=== PATIENT | female | born 1955 | race Caucasian/White ===

== ENCOUNTER 2018-09-22 13:16 | Outpatient (CLI) | payer BC ==
--- NOTE | 2018-09-22 14:12 | MMO ---
Bilateral MAMMO Bilat Screen [facility]DI. CLINICAL HISTORY: Patient is 62 years old and is seen for screening. The patient has the following family history of breast cancer: mother. The patient has no personal history of cancer. VIEWS: The views performed were: bilateral craniocaudal and bilateral mediolateral oblique. FILMS COMPARED: The present examination has been compared to prior imaging studies performed at [facility] on 09/01/2014, and at [facility] on 03/02/2008. This study has been interpreted with the assistance of computer-aided detection. MAMMOGRAM FINDINGS: There are scattered fibroglandular densities. There are no suspicious masses, suspicious calcifications, or new areas of architectural distortion. IMPRESSION: THERE IS NO MAMMOGRAPHIC EVIDENCE OF MALIGNANCY. A ROUTINE FOLLOW-UP MAMMOGRAM IN 1 YEAR IS RECOMMENDED. ACR BI-RADS Category 1 - Negative MAMMOGRAPHY NOTE: 1. A negative mammogram report should not delay a biopsy if a dominant of clinically suspicious mass is present. 2. Approximately 10% to 15% of breast cancers are not detected by mammography. 3. Adenosis and dense breasts may obscure an underlying neoplasm. Reported by: AMNA MURDOCK MD Electonically Signed: [id number]
== END 2018-09-22 13:17 | disposition home or self-care (01) ==
LOC: SCSMAMMO 13:16
PROVIDERS: ATTEND Family Medicine
DX: Z12.31 Encounter for screening mammogram for malignant neoplasm of breast (principal); Z80.3 Family history of malignant neoplasm of breast
CPT/HCPCS: 77067

== ENCOUNTER 2023-01-22 16:03 | Outpatient (CLI) | payer BC | END 2023-01-22 16:04 | disposition home or self-care (01) | LOC: BICRAD 16:03 | PROVIDERS: ATTEND Family Medicine | DX: L03.011 Cellulitis of right finger (principal) ==

== ENCOUNTER 2023-11-20 18:22 | Inpatient (IN) | payer MEDICARE ==
[2023-11-20] MEDS ORDERED: dilTIAZem 25 MG/5 ML VIAL ONE ×2 (18:39→19:50)
[2023-11-20] MEDS ORDERED: Diltiazem HCl/D5W 125 ML ONE (18:50)
[2023-11-20 19:29] LABS: #Basophils 0.03 10x3/uL (0.0-0.2); %Basophils 0.5 % (0.0-1.0); %Eosinophils 1.2 % (0.0-10.0); %Lymphocytes 15.9 % (21.0-51.0); %Monocytes 9.8 % (0.0-10.0); %Neutrophils 72.1 % (42.0-75.0); Hematocrit 42.8 % (36.0-47.0); Hemoglobin 13.3 g/dL (12.0-16.0); Mean Corpuscular HGB CONC 31.1 g/dL (32.0-36.0); Mean Corpuscular Hemoglobin 29.2 pg (27.0-31.0); Mean Corpuscular Volume 94.1 fL (78.0-98.0); Platelet Count 195 10x3/uL (130-400); RBC Distribution Width 14.1 % (11.5-14.5); Red Blood Cell (RBC) Count 4.55 mill/uL (4.20-5.40)
[2023-11-20] MEDS ORDERED: Amiodarone 150 MG/3 ML VIAL ONE (19:50)
[2023-11-20 19:55] LABS: ALT (SGPT) 30 U/L (8-55); AST (SGOT) 19 U/L (5-34); Albumin 3.3 g/dL (3.4-4.8); Alkaline Phosphatase 74 U/L (40-110); Anion Gap 18 mmol/L (10-20); BUN (Urea Nitrogen) 11 mg/dL (9.8-20.1); Bilirubin, Total 1.4 mg/dL (0.2-1.2); Calc. Creatinine Clearance 0 mL/min (70-130); Carbon Dioxide 21 mmol/L (23-31); Chloride 104 mmol/L (98-107); Estimated GFR 95; Glucose 149 mg/dL (80-115); Protein, Total 6.3 g/dL (5.8-8.1); Sodium 139 mmol/L (136-145)
[2023-11-20 20:01] LABS: Troponin I Less than 0.010 ng/mL (< 0.028)
[2023-11-20] MEDS ORDERED: Amiodarone 450 MG, Admixture Fee 1 EACH in Dextrose 5% in Water 250 ML IVPB SCH (20:15)
[2023-11-20] MEDS ORDERED: Sodium Chloride 0.9% 100 ML ONE (20:19)
[2023-11-20] MEDS ORDERED: cefTRIAXone (ROCEPHIN) 2 GM VIAL ONE (20:19)
[2023-11-20 20:53] LABS: Influenza A by NAA Not Detected (NotDetected); Influenza B by NAA Not Detected (NotDetected); SARS-CoV-2 NAA Rapid Test Not Detected (NotDetected)
[2023-11-20] MEDS ORDERED: Metoprolol Tartrate 5 MG (5 mL) VIAL ONE (22:55)
[2023-11-20] MEDS ORDERED: Ondansetron PF 4 MG/2 ML Vial IVP PRN (23:09)
[2023-11-20] MEDS ORDERED: Acetaminophen 325 MG TAB PO PRN (23:09)
[2023-11-20] MEDS ORDERED: Dextrose 5% in Water 1,000 ML IV PRN (23:21)
[2023-11-20] MEDS ORDERED: Glucagon 1 MG/ML KIT IM PRN (23:21)
[2023-11-20] MEDS ORDERED: Dextrose 50% Abboject 50 ML SYRINGE SLOW IVP PRN (23:21)
[2023-11-21] MEDS: Furosemide 20 MG (2 mL) VIAL SLOW IVP SCH ×2 (00:05→06:41)
[2023-11-21] MEDS ORDERED: Benzonatate 100 MG CAP ONE (00:07)
[2023-11-21] MEDS: Benzonatate 100 MG CAP PO PRN (00:09)
[2023-11-21] MEDS: Amiodarone 150 MG, Admixture Fee 1 EACH in Dextrose 5% in Water 100 ML IVPB SCH (00:48)
[2023-11-21] MEDS ORDERED: Diltiazem HCl/D5W 125 ML ONE (03:34)
[2023-11-21] MEDS: dilTIAZem 125 MG in Sodium Chloride 0.9% 100 ML IVPB SCH (03:54)
[2023-11-21 04:10] LABS: #Basophils 0.04 10x3/uL (0.0-0.2); %Basophils 0.6 % (0.0-1.0); %Eosinophils 1.1 % (0.0-10.0); %Lymphocytes 16.8 % (21.0-51.0); %Monocytes 11.5 % (0.0-10.0); %Neutrophils 69.7 % (42.0-75.0); Hematocrit 44.3 % (36.0-47.0); Hemoglobin 14.2 g/dL (12.0-16.0); Mean Corpuscular HGB CONC 32.1 g/dL (32.0-36.0); Mean Corpuscular Hemoglobin 29.6 pg (27.0-31.0); Mean Corpuscular Volume 92.5 fL (78.0-98.0); Mean Platelet Volume 10.3 fL (7.4-10.4); Platelet Count 194 10x3/uL (130-400); RBC Distribution Width 14.1 % (11.5-14.5); Red Blood Cell (RBC) Count 4.79 mill/uL (4.20-5.40)
[2023-11-21 04:32] LABS: Anion Gap 18 mmol/L (10-20); BUN (Urea Nitrogen) 16 mg/dL (9.8-20.1); Calc. Creatinine Clearance 109 mL/min (70-130); Carbon Dioxide 20 mmol/L (23-31); Chloride 101 mmol/L (98-107); Estimated GFR 87; Glucose 256 mg/dL (80-115); Potassium 4.1 mmol/L (3.5-5.1); Sodium 135 mmol/L (136-145)
[2023-11-21] MEDS ORDERED: Furosemide 20 MG (2 mL) VIAL ONE ×2 (06:32)
[2023-11-21] MEDS ORDERED: HumaLOG 300 UNITS/3 ML VIAL ONE (06:32)
[2023-11-21 06:48] VITALS: BP 125/66
[2023-11-21] MEDS: guaiFENesin/DM ER PO SCH (11:16)
[2023-11-21] MEDS: Atorvastatin Calcium 10 MG TAB PO SCH ×2 (11:16→21:25)
[2023-11-21] MEDS: Apixaban 5 MG TAB PO SCH (11:16)
[2023-11-21 15:31] VITALS: BMI 35.4
[2023-11-21] MEDS: Insulin Lispro 100 UNIT/ML 10 ML VIAL SC PRN ×2 (17:25→21:26)
[2023-11-21] MEDS: Diltiazem HCl/D5W 125 MG in Premix 1 BAG IVPB SCH (20:24)
[2023-11-21] MEDS: Insulin Glargine 30 UNITS/0.3 ML VIAL SC SCH (21:26)
[2023-11-22] MEDS: Amiodarone 450 MG in Dextrose 5% in Water 250 ML IVPB SCH (01:24)
[2023-11-22 05:28] LABS: #Basophils 0.03 10x3/uL (0.0-0.2); %Basophils 0.6 % (0.0-1.0); %Eosinophils 3.2 % (0.0-10.0); %Lymphocytes 29.5 % (21.0-51.0); %Monocytes 12.7 % (0.0-10.0); %Neutrophils 53.6 % (42.0-75.0); Hemoglobin 13.2 g/dL (12.0-16.0); Mean Corpuscular HGB CONC 31.4 g/dL (32.0-36.0); Mean Corpuscular Hemoglobin 29.6 pg (27.0-31.0); Mean Corpuscular Volume 94.2 fL (78.0-98.0); Mean Platelet Volume 10.3 fL (7.4-10.4); Platelet Count 204 10x3/uL (130-400); RBC Distribution Width 13.9 % (11.5-14.5); Red Blood Cell (RBC) Count 4.46 mill/uL (4.20-5.40)
[2023-11-22 05:43] LABS: Anion Gap 16 mmol/L (10-20); BUN (Urea Nitrogen) 20 mg/dL (9.8-20.1); Calc. Creatinine Clearance 124 mL/min (70-130); Calcium 8.8 mg/dL (7.8-10.44); Carbon Dioxide 25 mmol/L (23-31); Chloride 100 mmol/L (98-107); Estimated GFR 96; Glucose 189 mg/dL (80-115); Potassium 3.7 mmol/L (3.5-5.1); Sodium 137 mmol/L (136-145)
[2023-11-22] MEDS ORDERED: PROPOFOL 200 MG/20 ML VIAL ONE (12:16)
[2023-11-22] MEDS ORDERED: Lidocaine 1% PF 5 ML VIAL ONE (12:16)
[2023-11-22] MEDS: Sodium Chloride 0.9% 1,000 ML IV SCH (17:19)
[2023-11-23 04:41] LABS: #Basophils 0.04 10x3/uL (0.0-0.2); %Basophils 0.7 % (0.0-1.0); %Eosinophils 3.7 % (0.0-10.0); %Lymphocytes 35.8 % (21.0-51.0); %Monocytes 8.1 % (0.0-10.0); %Neutrophils 51.3 % (42.0-75.0); Hematocrit 44.3 % (36.0-47.0); Hemoglobin 14.1 g/dL (12.0-16.0); Mean Corpuscular HGB CONC 31.8 g/dL (32.0-36.0); Mean Corpuscular Hemoglobin 29.8 pg (27.0-31.0); Mean Corpuscular Volume 93.7 fL (78.0-98.0); Mean Platelet Volume 10.2 fL (7.4-10.4); Platelet Count 258 10x3/uL (130-400); RBC Distribution Width 13.6 % (11.5-14.5); Red Blood Cell (RBC) Count 4.73 mill/uL (4.20-5.40)
[2023-11-23 05:53] LABS: ALT (SGPT) 30 U/L (8-55); AST (SGOT) 20 U/L (5-34); Albumin 3.5 g/dL (3.4-4.8); Alkaline Phosphatase 83 U/L (40-110); Anion Gap 17 mmol/L (10-20); BUN (Urea Nitrogen) 25 mg/dL (9.8-20.1); Bilirubin, Total 1.4 mg/dL (0.2-1.2); Calc. Creatinine Clearance 115 mL/min (70-130); Calcium 9.3 mg/dL (7.8-10.44); Carbon Dioxide 30 mmol/L (23-31); Chloride 98 mmol/L (98-107); Estimated GFR 95; Globulin 3.4 g/dL (2.4-3.5); Glucose 143 mg/dL (80-115); Magnesium 2.4 mg/dL (1.6-2.6); Potassium 3.7 mmol/L (3.5-5.1); Protein, Total 6.9 g/dL (5.8-8.1); Sodium 141 mmol/L (136-145)
[2023-11-23 08:05] VITALS: TEMP 97.6
== END 2023-11-23 13:00 | disposition home or self-care (01) | DRG 308 ==
LOC: ERS 18:22 → ERHOLD 23:11 → IMCU/EMU 11-21 08:54
PROVIDERS: ADMIT Internal Medicine; ATTEND Internal Medicine
PROC: 5A2204Z Restoration of Cardiac Rhythm, Single (ICD-10-PCS; principal; 2023-11-22)
DX: I48.92 Unspecified atrial flutter (principal); I50.33 Acute on chronic diastolic (congestive) heart failure; E11.9 Type 2 diabetes mellitus without complications; I11.0 Hypertensive heart disease with heart failure; E78.5 Hyperlipidemia, unspecified; J06.9 Acute upper respiratory infection, unspecified; I48.0 Paroxysmal atrial fibrillation; E66.9 Obesity, unspecified; Z88.5 Allergy status to narcotic agent; Z91.018 Allergy to other foods; Z79.82 Long term (current) use of aspirin; Z79.899 Other long term (current) drug therapy; Z79.01 Long term (current) use of anticoagulants; Z88.2 Allergy status to sulfonamides; Z79.84 Long term (current) use of oral hypoglycemic drugs; Z79.4 Long term (current) use of insulin; Z68.34 Body mass index [BMI] 34.0-34.9, adult
CPT/HCPCS: 36415; 36416; 71045; 80048; 80053; 83735; 83880; 84443; 84484; 85025; 87633; 92960; 93005; 93010; 96365; 96366; 96375; 96376; J0282; J0696; J1815; J1940; J2704; J7070